=== PATIENT | female | born 1995 | race Caucasian/White ===

== ENCOUNTER 2017-04-04 05:29 | Emergency (ER) | payer OTHER ==
--- NOTE | 2017-04-04 05:39 | EDPHY ---
H & P Stated Complaint: abd pain HPI/ROS: HPI CHIEF COMPLAINT: Abdominal pain HISTORY OF PRESENT ILLNESS: Patient very pleasant 22-year-old female, she is otherwise healthy no significant medical or surgical history she presents emergency room with sudden onset low pelvic pain. Describes sudden onset around 445 this morning it woke her from sleep sharp stabbing radiating across her low pelvic region. Additionally radiates to her back. She states when she drove here in car the bumps or causing her to have worsening pain. She does state the pain went up into her abdomen and then kind of subsided and now is located bilateral adnexal regions. She denies any vaginal discharge or vaginal bleeding. Denies urinary symptoms. Denies fever. No history of ovarian cyst or torsion. She denies being . She denies chest pain or shortness of breath. She does complain of 6/10 low pelvic pain bilaterally. Uses Mirena for control. Past Medical History: No significant medical history Past Surgical History: No significant surgical history Social History: Denies daily use drugs alcohol tobacco products. Family History: Noncontributory ROS REVIEW OF SYSTEMS: A comprehensive 10 point review of systems is otherwise negative aside from elements mentioned in the history of present illness. Exam Constitutional appears well nontoxic triage nursing summary reviewed, vital signs reviewed, awake/alert. Eyes normal conjunctivae and sclera, EOMI, PERRLA. HENT normal inspection, atraumatic, moist mucus membranes, no epistaxis, neck supple/ no meningismus, no raccoon eyes. Respiratory clear to auscultation bilaterally, normal breath sounds, no respiratory distress, no wheezing. Cardiovascular rate normal, regular rhythm, no murmur, no edema, distal pulses normal. Gastrointestinal mild tender palpation the low adnexal bilaterally, no right lower quadrant pain, no rebound, no guarding, normal bowel sounds, no distension , no pulsatile mass. Genitourinary no CVA tenderness. Musculoskeletal no midline vertebral tenderness, full range of motion, no calf swelling, no tenderness of extremities, no meningismus, good pulses, neurovascularly intact. Skin pink, warm, & dry, no rash, skin atraumatic. Neurologic awake, alert and oriented x 3, AAOx3, moves all 4 extremities equally, motor intact, sensory intact, CN II-XII intact, normal cerebellar, normal vision, normal speech. Psychiatric normal mood/affect. Heme/Lymph/Immune no lymphadenopathy. Differential Diagnosis: Includes but is not limited to in a particular order ruptured ovarian cyst, ectopic , , acute appendicitis, PID, vaginitis, UTI, kidney stone Medical Decision Making: Plan for this patient IV establishment, IV pain control mg Dilaudid for pain control, IV Zofran 4 mg for nausea, IV fluids, check UA, check test, check H&H, basic blood work and pelvic ultrasound. Re-evaluation: 0643: Ultrasound shows a 4 cm right ovarian cyst with rupture. Intra peritoneal free fluid present. Not a large amount. 0643: This patient is hemodynamically stable no acute distress. Blood work has been reviewed H&H are stable. No white count. Will prescribe patient [place] for pain control and have her follow up with OBGYN. Additionally patient understands to return emergency room she develops worsening abdominal pain fever vomiting or abdominal pain is getting worse or she feels lightheaded. I did explain is always a chance that this can further bleed. She can get a large amount of volume of intraperitoneal free fluid. I do recommend she closely monitored herself, if she feels lightheaded, worsening abdominal pain or abdominal bloating she should return emergency room she understands. [place] for pain control. Follow up with OBGYN. Return precautions discussed she understands. Source: Patient - Personal History LMP (Females 10-55): Extended Cycle BCP/Inj Current Tetanus Diphtheria and Acellular Pertussis (TDAP): Unsure - Medical/Surgical History Hx Asthma: No Hx Chronic Respiratory Disease: No Hx Diabetes: No Hx Cardiac Disease: No Hx Renal Disease: No Hx Cirrhosis: No Hx Alcoholism: No Hx HIV/AIDS: No Hx Splenectomy or Spleen Trauma: No - Social History Smoking Status: Never smoked Constitutional: Initial Vital Signs Temperature (C) 36.6 C 04/04/17 05:32 Heart Rate 80 04/04/17 05:32 Respiratory Rate 20 04/04/17 05:32 Blood Pressure 125/65 H 04/04/17 05:32 O2 Sat (%) 99 04/04/17 05:32 O2 Delivery Mode Room Air Allergies/Adverse Reactions: No Known Allergies Allergy (Unverified 04/04/17 05:31) Home Medications: Medication Instructions Recorded Hydrocodone/APAP 5/325 [[place] 1 - 2 tab PO Q4H PRN #14 tab 04/04/17 5/325] Ibuprofen [Motrin (*)] 800 mg PO Q6-8PRN #14 tab 04/04/17 Medical Decision Making - Data Points Laboratory Results: Laboratory Results 04/04/17 05:47 04/04/17 05:47 04/04/17 04/04/17 04/04/17 05:50 05:47 05:47 WBC RBC Hgb Hct MCV MCH MCHC RDW Plt Count MPV Neut % (Auto) Lymph % (Auto) [place] % (Auto) Eos % (Auto) Baso % (Auto) Nucleat RBC Rel Count Absolute Neuts (auto) Absolute Lymphs (auto) Absolute Monos (auto) Absolute Eos (auto) Absolute Basos (auto) Absolute Nucleated RBC Immature Gran % Immature Gran # Sodium 141 mEq/L mEq/L (135-145) Potassium 3.8 mEq/L mEq/L (3.5-5.2) Chloride 106 mEq/L mEq/L (97-110) Carbon Dioxide 24 mEq/l mEq/l (22-31) Anion Gap 11 mEq/L mEq/L (8-16) BUN 14 mg/dL mg/dL (7-23) Creatinine 0.8 mg/dL mg/dL (0.6-1.0) Estimated GFR > 60 Glucose 99 mg/dL mg/dL (70-100) Calcium 9.1 mg/dL mg/dL (8.5-10.4) Total Bilirubin 0.3 mg/dL mg/dL (0.1-1.4) Conjugated Bilirubin 0.2 mg/dL mg/dL (0.0-0.5) Unconjugated Bilirubin 0.1 mg/dL mg/dL (0.0-1.1) AST 20 IU/L IU/L (14-46) ALT 23 IU/L IU/L (9-52) Alkaline Phosphatase 53 IU/L IU/L (38-126) Total Protein 7.1 g/dL g/dL (6.3-8.2) Albumin 3.9 g/dL g/dL (3.5-5.0) Lipase 134 IU/L IU/L (23-300) Beta HCG, Qual NEGATIVE Urine Color YELLOW Urine Appearance CLEAR Urine pH 6.0 (5.0-7.5) Ur Specific [place] 1.020 (1.002-1.030) Urine Protein NEGATIVE (NEGATIVE) Urine Ketones NEGATIVE (NEGATIVE) Urine Blood NEGATIVE (NEGATIVE) Urine Nitrate NEGATIVE (NEGATIVE) Urine Bilirubin NEGATIVE (NEGATIVE) Urine Urobilinogen NEGATIVE EU EU (0.2-1.0) Ur Leukocyte Esterase NEGATIVE (NEGATIVE) Urine Glucose NEGATIVE (NEGATIVE) 04/04/17 05:47 WBC 8.40 10^3/uL 10^3/uL (3.80-9.50) RBC 4.92 10^6/uL 10^6/uL (4.18-5.33) Hgb 13.9 g/dL g/dL (12.6-16.3) Hct 41.3 % % (38.0-47.0) MCV 83.9 fL fL (81.5-99.8) MCH 28.3 pg pg (27.9-34.1) MCHC 33.7 g/dL g/dL (32.4-36.7) RDW 13.9 % % (11.5-15.2) Plt Count 231 10^3/uL 10^3/uL (150-400) MPV 9.9 fL fL (8.7-11.7) Neut % (Auto) 48.1 % % (39.3-74.2) Lymph % (Auto) 37.5 % % (15.0-45.0) [place] % (Auto) 9.9 % % (4.5-13.0) Eos % (Auto) 4.2 % % (0.6-7.6) Baso % (Auto) 0.1 % L % (0.3-1.7) Nucleat RBC Rel Count 0.0 % % (0.0-0.2) Absolute Neuts (auto) 4.04 10^3/uL 10^3/uL (1.70-6.50) Absolute Lymphs (auto) 3.15 10^3/uL H 10^3/uL (1.00-3.00) Absolute Monos (auto) 0.83 10^3/uL H 10^3/uL (0.30-0.80) Absolute Eos (auto) 0.35 10^3/uL 10^3/uL (0.03-0.40) Absolute Basos (auto) 0.01 10^3/uL L 10^3/uL (0.02-0.10) Absolute Nucleated RBC 0.00 10^3/uL 10^3/uL (0-0.01) Immature Gran % 0.2 % % (0.0-1.1) Immature Gran # 0.02 10^3/uL 10^3/uL (0.00-0.10) Sodium Potassium Chloride Carbon Dioxide Anion Gap BUN Creatinine Estimated GFR Glucose Calcium Total Bilirubin Conjugated Bilirubin Unconjugated Bilirubin AST ALT Alkaline Phosphatase Total Protein Albumin Lipase Beta HCG, Qual Urine Color Urine Appearance Urine pH Ur Specific [place] Urine Protein Urine Ketones Urine Blood Urine Nitrate Urine Bilirubin Urine Urobilinogen Ur Leukocyte Esterase Urine Glucose Medications Given: Discontinued Medications Hydromorphone HCl (Dilaudid) 1 mg IVP EDNOW ONE Stop: 04/04/17 05:43 Last Admin: 04/04/17 05:54 Dose: 1 mg Sodium Chloride (Ns) 1,000 mls @ 0 mls/hr IV EDNOW ONE; Wide Open PRN Reason: Protocol Stop: 04/04/17 05:43 Last Admin: 04/04/17 05:55 Dose: 1,000 mls Ondansetron HCl (Zofran) 4 mg IVP EDNOW ONE Stop: 04/04/17 05:43 Last Admin: 04/04/17 05:54 Dose: 4 mg Departure - Departure Disposition: Home, Routine, Self-Care Clinical Impression: Ruptured ovarian cyst Condition: Fair Instructions: Ovarian Cyst (ED), Ruptured Ovarian Cyst (ED) Additional Instructions: 1. Return emergency room if he develops worsening symptoms questions or concerns 2. Return if you have worsening abdominal pain vomiting or fever. Referrals: Izabella Alex MD [Primary Care Provider] - As per Instructions April Gibson MD [Medical Doctor] - As per Instructions Prescriptions: Hydrocodone/APAP 5/325 [[place] 5/325] 1 - 2 tab PO Q4H PRN #14 tab PRN Reason: Pain, Moderate Ibuprofen [Motrin (*)] 800 mg PO Q6-8PRN #14 tab
[2017-04-04] MEDS ORDERED: ONDANSETRON 4 MG/2 ML VIAL IVP ONE (05:42)
[2017-04-04] MEDS ORDERED: NS 1,000 ML IV ONE (05:42)
[2017-04-04] MEDS ORDERED: HYDROmorphONE/DILAUDID 1 MG/ML INJ IVP ONE (05:42)
[2017-04-04 05:58] LABS: PLATELET COUNT 231 10^3/uL (150-400)
[2017-04-04 07:37] VITALS: BP 112/76; PULSE 70; RESP 16; TEMP 98.6; O2SAT 97
== END 2017-04-04 07:37 | disposition home or self-care (01) ==
DX: N83.201 Unspecified ovarian cyst, right side (principal); E86.9 Volume depletion, unspecified
CPT/HCPCS: 96374; J1170; J2405

== ENCOUNTER 2017-04-12 14:36 | Emergency (ER) | payer OTHER ==
--- NOTE | 2017-04-12 16:35 | EDPHY ---
H & P Stated Complaint: Here 04/04 w/dx ovarian cyst;saw PCP today sent back for eval; needs pain med - Personal History LMP (Females 10-55): IUD In Place Current Tetanus Diphtheria and Acellular Pertussis (TDAP): Yes - Medical/Surgical History Hx Asthma: No Hx Chronic Respiratory Disease: No Hx Diabetes: No Hx Cardiac Disease: No Hx Renal Disease: No Hx Cirrhosis: No Hx Alcoholism: No Hx HIV/AIDS: No Hx Splenectomy or Spleen Trauma: No - Social History Smoking Status: Never smoked Time Seen by Provider: 04/12/17 16:15 HPI/ROS: CHIEF COMPLAINT: Abdominal pain HISTORY OF PRESENT ILLNESS: 22-year-old female originally seen the ER 8 days ago for complaints of abdominal pain described primarily in the lower abdomen which point she was found to have a 4 cm ruptured ovarian cyst, treated and released. She followed up the next day with her primary care provider, Dr. Cecilia Nash, states that she is feeling improvement and was pain free over the next few days. Yesterday the patient developed return of abdominal pain describing this as different, describing diffuse abdominal pain, saw a nurse practitioner her PCPs office recommend she come to the ER for re-evaluation today. Patient describes diffuse abdominal pain without nausea, vomiting, back pain, flank pain. Positive vaginal bleeding. Positive IUD in place. PRIMARY CARE PROVIDER:Dr. Cecilia Nash REVIEW OF SYSTEMS: A ten point review of systems was performed and is negative with the exception of the items mentioned in the HPI PAST MEDICAL & SURGICAL HISTORY: Recent ovarian cyst diagnosis SOCIAL HISTORY: nonsmoker PHYSICAL EXAM (Prior to examination, patient consented to physical exam, hands were washed and my usual and customary physical exam procedures followed) 1) GENERAL: Well-developed, well-nourished, alert and oriented. Appears nontoxic. 2) HEAD: Normocephalic, atraumatic 3) HEENT: Pupils equal, round, reactive to light bilaterally. Sclera anicteric. [Nasopharynx, oropharynx, clear, no lesions. Moist mucous membrane 4) NECK: Full range of motion, no meningeal signs. 5) LUNGS: Clear auscultation bilaterally, no wheezes, no rhonchi, no retractions. 6) HEART: Regular rate and rhythm, no murmur, no heave, no gallop. 7) ABDOMEN: No guarding, diffusely tender to palpation all quadrants., 8) MUSCULOSKELETAL: Moving all extremities, no focal areas of tenderness, no obvious trauma. No peripheral edema or discoloration. 9) BACK: positive left CVA tenderness, no midline vertebral tenderness, no fluctuance, no step-off, no obvious trauma, no visual or palpable abnormality. 10) SKIN: No rash, no petechiae. 11) Psychiatric: Patient is oriented X 3, there is no agitation. DIFFERENTIAL DIAGNOSIS: My differential diagnosis includes, but is not limited to, acute appendicitis, acute cholecystitis, bowel obstruction, acute pancreatitis, ovarian torsion, ectopic , gastritis and urinary tract infection. The patient understands that this diagnosis is provisional and can never be 100% accurate. This is a partial list of diagnoses considered. These considerations are based on history, physical exam, past history and reassessment. (Veena Hall) Constitutional: Initial Vital Signs Temperature (C) 36.5 C 04/12/17 14:40 Heart Rate 75 04/12/17 14:40 Respiratory Rate 16 04/12/17 14:40 Blood Pressure 121/93 H 04/12/17 14:40 O2 Sat (%) 98 04/12/17 14:40 O2 Delivery Mode Room Air Allergies/Adverse Reactions: No Known Allergies Allergy (Unverified 04/04/17 05:31) Home Medications: Medication Instructions Recorded Hydrocodone/APAP 5/325 [[place] 1 tab PO Q6 PRN #15 tab 04/12/17 5/325 (RX)] Medical Decision Making - Diagnostics Imaging Results: Imaging Impressions Abdomen CT 04/12/17 16:36 Impression: 1. There has been an interval increase in the size of the right ovarian cyst, currently measuring up to 6.4 cm in diameter, previously measuring 4.2 cm on . Given the patient's interval increase in the level of discomfort, sonographic reevaluation to assure appropriate vascular flow is suggested. 2. [id number] generalized constipation. Findings were discussed with Veena Hall PA-C at 18:27, on 04/12/2017. Pelvic/Renal Ultrasound 04/12/17 18:29 Impression: 1. Interval enlargement of a now 6 cm simple cyst in the right ovary, previously 4.2 cm. For a cyst of this size, annual follow-up is recommended. 2. IUD in good position. Findings discussed with Veena Hall 04/12/2017 at 19:35. Imaging Impressions Abdomen CT 04/12/17 16:36 Impression: 1. There has been an interval increase in the size of the right ovarian cyst, currently measuring up to 6.4 cm in diameter, previously measuring 4.2 cm on . Given the patient's interval increase in the level of discomfort, sonographic reevaluation to assure appropriate vascular flow is suggested. 2. [id number] generalized constipation. Findings were discussed with Veena Hall PA-C at 18:27, on 04/12/2017. Pelvic/Renal Ultrasound 04/12/17 18:29 Impression: 1. Interval enlargement of a now 6 cm simple cyst in the right ovary, previously 4.2 cm. For a cyst of this size, annual follow-up is recommended. 2. IUD in good position. Findings discussed with Veena Hall 04/12/2017 at 19:35. Images reviewed by myself (Veena Hall) ED Course/Re-evaluation: I evaluated this patient and discussed the patient with Esha. I agree with management. We will consult timber robber. (Shalom De Anda) 6:29 p.m.: Patient's CT abdomen shows a larger ovarian cyst. In discussion with radiologist, dedicated pelvic ultrasound will be obtained to evaluate flow , rule out torsion. Otherwise CT abdomen shows normal appendix. 7:47 p.m.: Phone consultation with Dr. Blaire Ramirez OBGYN who recommends outpatient follow-up in the next few days for enlarging ovarian cyst. (Veena Hall) - Data Points Laboratory Results: Laboratory Results 04/12/17 17:15 04/12/17 17:15 04/12/17 04/12/17 04/12/17 17:15 17:15 17:15 WBC RBC Hgb Hct MCV MCH MCHC RDW Plt Count MPV Neut % (Auto) Lymph % (Auto) [place] % (Auto) Eos % (Auto) Baso % (Auto) Nucleat RBC Rel Count Absolute Neuts (auto) Absolute Lymphs (auto) Absolute Monos (auto) Absolute Eos (auto) Absolute Basos (auto) Absolute Nucleated RBC Immature Gran % Immature Gran # Sodium 143 mEq/L mEq/L (135-145) Potassium 3.7 mEq/L mEq/L (3.5-5.2) Chloride 105 mEq/L mEq/L (97-110) Carbon Dioxide 24 mEq/l mEq/l (22-31) Anion Gap 14 mEq/L mEq/L (8-16) BUN 9 mg/dL mg/dL (7-23) Creatinine 0.7 mg/dL mg/dL (0.6-1.0) Estimated GFR > 60 Glucose 79 mg/dL mg/dL (70-100) Calcium 10.0 mg/dL mg/dL (8.5-10.4) Total Bilirubin 0.3 mg/dL mg/dL (0.1-1.4) Conjugated Bilirubin 0.2 mg/dL mg/dL (0.0-0.5) Unconjugated Bilirubin 0.1 mg/dL mg/dL (0.0-1.1) AST 24 IU/L IU/L (14-46) ALT 27 IU/L IU/L (9-52) Alkaline Phosphatase 52 IU/L IU/L (38-126) Total Protein 8.4 g/dL H g/dL (6.3-8.2) Albumin 4.9 g/dL g/dL (3.5-5.0) Lipase 110 IU/L IU/L (23-300) Beta HCG, Qual NEGATIVE Urine Color PALE YELLOW Urine Appearance CLEAR Urine pH 8.0 H (5.0-7.5) Ur Specific [place] 1.008 (1.002-1.030) Urine Protein NEGATIVE (NEGATIVE) Urine Ketones NEGATIVE (NEGATIVE) Urine Blood 3+ H (NEGATIVE) Urine Nitrate NEGATIVE (NEGATIVE) Urine Bilirubin NEGATIVE (NEGATIVE) Urine Urobilinogen NEGATIVE EU EU (0.2-1.0) Ur Leukocyte Esterase NEGATIVE (NEGATIVE) Urine RBC 25-50 /hpf H /hpf (0-3) Urine WBC 1-3 /hpf /hpf (0-3) Ur Epithelial Cells TRACE /lpf /lpf (NONE-1+) Urine Bacteria TRACE /hpf H /hpf (NONE SEEN) Urine Mucus TRACE /lpf /lpf (NONE-1+) Urine Glucose NEGATIVE (NEGATIVE) 04/12/17 17:15 WBC 6.21 10^3/uL 10^3/uL (3.80-9.50) RBC 5.37 10^6/uL H 10^6/uL (4.18-5.33) Hgb 15.1 g/dL g/dL (12.6-16.3) Hct 45.5 % % (38.0-47.0) MCV 84.7 fL fL (81.5-99.8) MCH 28.1 pg pg (27.9-34.1) MCHC 33.2 g/dL g/dL (32.4-36.7) RDW 13.9 % % (11.5-15.2) Plt Count 226 10^3/uL 10^3/uL (150-400) MPV 10.1 fL fL (8.7-11.7) Neut % (Auto) 56.5 % % (39.3-74.2) Lymph % (Auto) 30.9 % % (15.0-45.0) [place] % (Auto) 7.9 % % (4.5-13.0) Eos % (Auto) 4.3 % % (0.6-7.6) Baso % (Auto) 0.2 % L % (0.3-1.7) Nucleat RBC Rel Count 0.0 % % (0.0-0.2) Absolute Neuts (auto) 3.51 10^3/uL 10^3/uL (1.70-6.50) Absolute Lymphs (auto) 1.92 10^3/uL 10^3/uL (1.00-3.00) Absolute Monos (auto) 0.49 10^3/uL 10^3/uL (0.30-0.80) Absolute Eos (auto) 0.27 10^3/uL 10^3/uL (0.03-0.40) Absolute Basos (auto) 0.01 10^3/uL L 10^3/uL (0.02-0.10) Absolute Nucleated RBC 0.00 10^3/uL 10^3/uL (0-0.01) Immature Gran % 0.2 % % (0.0-1.1) Immature Gran # 0.01 10^3/uL 10^3/uL (0.00-0.10) Sodium Potassium Chloride Carbon Dioxide Anion Gap BUN Creatinine Estimated GFR Glucose Calcium Total Bilirubin Conjugated Bilirubin Unconjugated Bilirubin AST ALT Alkaline Phosphatase Total Protein Albumin Lipase Beta HCG, Qual Urine Color Urine Appearance Urine pH Ur Specific [place] Urine Protein Urine Ketones Urine Blood Urine Nitrate Urine Bilirubin Urine Urobilinogen Ur Leukocyte Esterase Urine RBC Urine WBC Ur Epithelial Cells Urine Bacteria Urine Mucus Urine Glucose Medications Given: Discontinued Medications Sodium Chloride (Ns) 1,000 mls @ 0 mls/hr IV EDNOW ONE; Wide Open PRN Reason: Protocol Stop: 04/12/17 16:37 Last Admin: 04/12/17 17:01 Dose: 1,000 mls Ketorolac Tromethamine (Toradol) 30 mg IVP EDNOW ONE Stop: 04/12/17 16:37 Last Admin: 04/12/17 17:01 Dose: 30 mg Morphine Sulfate (Morphine) 6 mg IVP EDNOW ONE Stop: 04/12/17 16:37 Last Admin: 04/12/17 17:00 Dose: 6 mg Departure - Departure Disposition: Home, Routine, Self-Care Clinical Impression: Ovarian cyst Qualifiers: Laterality: right Qualified Code(s): N83.201 - Unspecified ovarian cyst, right side Condition: Good Instructions: Hydrocodone/Acetaminophen (By mouth), Ovarian Cyst (ED) Additional Instructions: Return to the ER if you develop new or worsening symptoms. Referrals: Blaire Ramirez MD [Medical Doctor] - 2-3 days, call for appt. Prescriptions: Hydrocodone/APAP 5/325 [[place] 5/325 (RX)] 1 tab PO Q6 PRN #15 tab PRN Reason: Pain, Severe
[2017-04-12] MEDS ORDERED: NS 1,000 ML IV ONE (16:36)
[2017-04-12] MEDS ORDERED: KETOROLAC 30 MG/1 ML SDV IVP ONE (16:36)
[2017-04-12] MEDS ORDERED: KETOROLAC 15 MG/1 ML SDV ONE (16:50)
[2017-04-12 17:23] LABS: PLATELET COUNT 226 10^3/uL (150-400)
[2017-04-12] MEDS ORDERED: IOPAMIDOL (ISOVUE-300) 100 ML BTL ONE (17:54)
[2017-04-12 21:08] VITALS: BP 123/86; PULSE 69; RESP 18; TEMP 98.2; O2SAT 97
== END 2017-04-12 21:10 | disposition home or self-care (01) ==
DX: N83.201 Unspecified ovarian cyst, right side (principal)
CPT/HCPCS: 96374; J1885; Q9967

== ENCOUNTER → 2017-06-10 | Outpatient (CLI) | payer OTHER | LOC: CIMAGING 16:36 | PROVIDERS: ATTEND Obstetrics & Gynecology | DX: R10.9 Unspecified abdominal pain (principal); Z97.5 Presence of (intrauterine) contraceptive device | CPT/HCPCS: 76856-PO ==

== ENCOUNTER 2018-08-19 13:22 | Emergency (ER) | payer OTHER | END 2018-08-19 16:33 | disposition home or self-care (01) ==